=== PATIENT | female | born 1980 | race Caucasian/White ===

== ENCOUNTER 2017-07-24 10:58 | Day surgery (SDC) | payer OTHER ==
[~2017-07-24 10:58] MED LIST: CEFAZOLIN SODIUM 2 GM in DEXTROSE 5%-WATER 100 ML IV PRN
[2017-07-24] MEDS ORDERED: BACITRACIN INJ 50,000 UNIT VIAL ONE (11:21)
[2017-07-24] MEDS ORDERED: BUPIVACAINE HCL 0.5 % INJ/PF 30 ML SDV ONE (11:21)
[2017-07-24 11:36] LABS: HEMATOCRIT 43.7 % (36.0-47.0); HEMOGLOBIN 14.8 g/dL (12.0-15.5); MEAN CORPUSCULAR HEMOGLOBIN 30.2 pg (27.0-33.4); MEAN CORPUSCULAR HGB CONC 33.9 g/dL (32.0-36.0); MEAN CORPUSCULAR VOLUME 89 fl (80-97); PLATELET COUNT 178 10^3/uL (150-450); WHITE BLOOD COUNT 5.8 10^3/uL (4.0-10.5)
[2017-07-24] MEDS ORDERED: RINGERS SOLUTION,LACTATED 1,000 ML IV PRN ×2 (11:39→17:45)
[2017-07-24 11:41] LABS: APPEARANCE,URINE CLEAR; BILIRUBIN,URINE NEGATIVE (NEGATIVE); COLOR,URINE YELLOW; GLUCOSE, URINE NEGATIVE (NEGATIVE); KETONES,URINE NEGATIVE (NEGATIVE); LEUKOCYTE ESTERASE,URINE NEGATIVE (NEGATIVE); NITRITE,URINE NEGATIVE (NEGATIVE); PROTEIN,URINE NEGATIVE (NEGATIVE); URINE SPECIFIC GRAVITY 1.016; UROBILINOGEN,URINE NEGATIVE mg/dL (<2.0)
[2017-07-24 12:00] LABS: ANION GAP 13 (5-19); BLOOD UREA NITROGEN 12 mg/dL (7-20); CALCIUM 9.5 mg/dL (8.4-10.2); CARBON DIOXIDE 25 mmol/L (22-30); CHLORIDE 107 mmol/L (98-107); GLUCOSE 83 mg/dL (75-110); POTASSIUM 4.9 mmol/L (3.6-5.0)
[2017-07-24] MEDS ORDERED: FAMOTIDINE INJ/PF 20 MG/2 ML SDV IV ONE (12:30)
[2017-07-24] MEDS ORDERED: SCOPOLAMINE HYDROBROMIDE 1.5 MG PATCH.TD72 TD ONE (12:30)
[2017-07-24] MEDS ORDERED: RINGERS SOLUTION,LACTATED 1,000 ML IV ONE (12:30)
[2017-07-24] MEDS ORDERED: PROPOFOL INJ 200 MG/20 ML VIAL IV ONE (14:42)
[2017-07-24] MEDS ORDERED: FENTANYL CITRATE INJ/PF 100 MCG/2 ML AMPUL ONE (14:42)
[2017-07-24] MEDS ORDERED: ONDANSETRON HCL INJ/PF 4 MG/2 ML SDV ONE (14:42)
[2017-07-24] MEDS ORDERED: MIDAZOLAM 2 MG/2 ML INJ ONE (14:42)
[2017-07-24] MEDS ORDERED: HYDROMORPHONE HCL INJ/PF 2 MG/ML AMPULE ONE (14:43)
[2017-07-24] MEDS ORDERED: DIPHENHYDRAMINE HCL 50 MG/ML VIAL IV PRN (15:22)
[2017-07-24] MEDS ORDERED: FENTANYL CITRATE INJ/PF 100 MCG/2 ML AMPUL IV PRN ×3 (15:22)
[2017-07-24] MEDS ORDERED: PROMETHAZINE HCL INJ 25 MG/1 ML VIAL IV PRN (15:22)
[2017-07-24] MEDS ORDERED: MEPERIDINE HCL/PF INJ 25 MG/1 ML DISP.SYRIN IV PRN (15:22)
[2017-07-24] MEDS ORDERED: ACETAMINOPHEN 100 ML IV ONE (15:32)
--- NOTE | 2017-07-24 17:27 | Operative Report ---
Operative Report DATE OF SURGERY: 07/24/17 PREOPERATIVE DIAGNOSIS: Untable Left Elbow Dislocation POSTOPERATIVE DIAGNOSIS: Same OPERATION: Lateral ulnar collateral ligament repair with placement of internal joint stabilizer Open treatment of unstable elbow dislocation SURGEON: PAN HERNANDEZ 1ST GATE SHEAR OPERATOR: CHETAN BELLA - Required for to retractor placement and joint reduction. COMPLICATIONS: None ESTIMATED BLOOD LOSS: Minimal PROCEDURE: Indication for above procedure: 37-year-old female who sustained a fall resulting in a dislocation of her left elbow. Closed reduction was performed unfortunately patient continued to have residual stability of her elbow at that point patient was referred to me for possible treatment. After discussing patient's injury and options decision was made to proceed with operative intervention. Risks and benefits were explained patient verbalized understanding consented for the procedure. Procedure In Detail: Patient was seen and evaluated in the preoperative holding area. The LEFT upper extremity was initialized and marked. Patient received 2g of Ancef IV for bacterial prophylaxis. Patient was taken back to the operative room where transferred to the operative table and placed under general anesthesia. Once they were adequately anesthetized a nonsterile tourniquet was placed on the upper extremity. A surgical team debriefing was performed ensuring all instrumentation was available, the surgical procedure was discussed with possible concerns reviewed. The upper extremity was prepped with ChloraPrep and draped in a sterile fashion. A timeout was done identifying correct patient, procedure and extremity everyone in attendance agree with this and verbalized no concerns. The extremity was exsanguinated the tourniquet was inflated to 250 mmHg. Examination under anesthesia demonstrated significant instability globally throughout the ulnohumeral joint. Thus decision was made to proceed with open treatment. Skin incision was made at the midpoint between the olecranon and lateral epicondyle. Blunt dissection was performed to the soft tissues. There is significant disruption of the extensor origin and the radial head was exposed with complete disruption of the lateral ulnar collateral ligament. Inspection of the joint demonstrated chondral fragments within the radiocapitellar and ulnohumeral joint with a small chip fracture of the coronoid. The joint was copiously irrigated with normal saline and any free loose bodies were removed. There is also complete disruption of the anterior capsule. I then proceeded with placement of my guidepin within the isometric point. I measured a medium sized capitellum and with the guide placed a pin through the lateral epicondyle at the origin of the isometric point. C-arm fluoroscopy was obtained confirming appropriate placement of the guide pin. Cannulated drill was then utilized and the guidepin measured to be approximately 40 mm. The locking peg was then placed into position. And I proceeded with lateral ulnar collateral ligament repair. With a #2 FiberWire a Krakw stitch was placed within the lateral ulnar collateral ligament. Drill holes were placed around the locking peg one anterior and one posterior. While reducing the elbow with flexion and pronation this was secured. There is still residual instability and thus decision to proceed with [employer] IJS internal fixator. The posterior lateral corner of the proximal ulna was exposed. Once adequate exposure was confirmed the baseplate was placed first drilling into the dynamic hole aiming towards the coronoid. C-arm fluoroscopy was obtained confirming appropriate placement of the baseplate. I then completed fixation proximal and distal to this one screw within the olecranon tip and the other one obtaining fixation into the ulnar shaft. Once adequate fixation was confirmed I then proceeded with closure of the fascia. The extensor mechanism was reapproximated proximally at its origin with #2 FiberWire. The distal fascial split was closed with interrupted 0 Vicryl suture. I then connected the baseplate and the locking peg and reduce the ulnohumeral and radiocapitellar joint. This was then tightened securely. The elbow was ranged from full extension to full flexion there was no evidence of instability with range of motion. Furthermore there is no evidence of crepitation or resistance to range of motion throughout elbow flexion extension and pronation and supination. Finally the connecting guide was cut to avoid postoperative irritation. Subcutaneous tissues were then closed with interrupted 3-0 Vicryl suture. Skin was closed with a running subcuticular 4-0 Monocryl reinforced with Dermabond and Steri-Strips. 20 cc of 0.5% Marcaine without epinephrine was injected for postoperative pain control. Tourniquet was deflated. Patient had good peripheral perfusion. Patient placed in a well-padded posterior elbow splint at 60 of flexion. Sponge counts, instrument counts, needle counts counts were correct. Patient was then awoken from anesthesia. Transferred from the operating room table to the operating room stretcher. There was no intraoperative complications patient tolerated procedure well stable to PACU. Postoperative plan: Patient will follow-up the office in 2 weeks at which point we will obtain radiographs. Depending on findings radiographically she will begin elbow range of motion without limitations. Anticipate hardware removal 8-10 weeks postoperatively.
[2017-07-24] MEDS ORDERED: MORPHINE SULFATE 10 MG/ML INJ IV PRN (17:45)
[2017-07-24] MEDS ORDERED: KETOROLAC TROMETHAMINE 60 MG/2 ML SDV IM PRN (17:45)
[2017-07-24] MEDS ORDERED: HYDROCODONE/ACETAMINOPHEN 10-325 MG TABLET PO PRN (17:45)
[2017-07-24] MEDS ORDERED: ONDANSETRON HCL INJ/PF 4 MG/2 ML SDV IV PRN (17:45)
--- NOTE | 2017-07-24 17:45 | Discharge Summary ---
Discharge Summary (SDC) - Discharge Final Diagnosis: subluxation of left elbow Date of Surgery: 07/24/17 Discharge Date: 07/24/17 Condition: Good Treatment or Instructions: Schedule Follow Up w/ Dr. Kuldip Casiano @ [facility] for Surgery to be seen in 10-14 days or as scheduled [place]: [place]: [place]: Ice and elevate Keep splint clean/dry/intact. If your fingers become numb please unwrap the K[place] wrap but leave the splint in place, if the sensation does not return within 30 minutes please return to the emergency department. May begin finger range of motion attempting to make full fist. Please use ibuprofen (Motrin or Advil) 600-800 mg every 8 hours as needed for pain or fever DO NOT TAKE w/ TORADOL may use once TORADOL complete. You may also use acetaminophen (Tylenol) 1000 mg every 4-6 hours as needed for pain or fever. Please be aware that many medications contain acetaminophen, do not exceed a total of 1000 mg of acetaminophen every 6 hours. If ibuprofen and acetaminophen are not sufficient for your pain you may take the Percocet/[place]. Please be aware that the Percocet/[place] does contain Tylenol. Stool softener of choice when on pain medication. Prescriptions: Hydrocodone/Acetaminophen [Hydrocodon-Acetaminophen 5-325] 1 each PO Q6 #30 tablet Ketorolac Tromethamine [Toradol 10 mg Tablet] 10 mg PO Q6 #10 tablet Referrals: CHRIS CASTANO PA [Primary Care Provider] - Discharge Diet: As Tolerated, Regular Respiratory Treatments at Home: Deep Breathing/Coughing Discharge Activity: No Lifting Over 10 Pounds, No Lifting/Push/Pulling, No tub bath Report the Following to Your Physician Immediately: Shortness of Breath, Yellow Skin, Fever over 101 Degrees, Swelling, Warmth, Increased Soreness, Drainage- Yellow
[2017-07-24] MEDS ORDERED: KETOROLAC TROMETHAMINE INJ/PF 30 MG/1 ML SDV ONE (17:48)
[2017-07-24] MEDS: HYDROMORPHONE HCL INJ/PF 2 MG/ML AMPULE ONE ×2 (17:49→17:59)
--- NOTE | 2017-07-24 17:59 | RADIOLOGY REPORT (SQ) ---
EXAM DESCRIPTION: NO CHG FLUORO; ELBOW LEFT AP/LATERAL COMPLETED DATE/TIME: 07/24/2017 5:50 pm REASON FOR STUDY: LT ELBOW REPAIR, LAT. FIXATOR PLACEMENT COMPARISON: None. FLUOROSCOPY TIME: 1 minute 5 Images saved to PACS LIMITATIONS: None. PROCEDURE: ORIF left elbow FINDINGS: Images obtained with fluoro document the open reduction internal fixation of what appears to be a fracture of the proximal ulna. IMPRESSION: ORIF left elbow. COMMENT: PQRS 6045F: Fluoroscopy time of the procedure is documented in the report. TECHNICAL DOCUMENTATION: JOB ID: [id number] [employer]- All Rights Reserved Reading location - IP/workstation name: [email or web address]
--- NOTE | 2017-07-24 17:59 | RADIOLOGY REPORT (SQ) ---
EXAM DESCRIPTION: NO CHG FLUORO; ELBOW LEFT AP/LATERAL COMPLETED DATE/TIME: 07/24/2017 5:50 pm REASON FOR STUDY: LT ELBOW REPAIR, LAT. FIXATOR PLACEMENT COMPARISON: None. FLUOROSCOPY TIME: 1 minute 5 Images saved to PACS LIMITATIONS: None. PROCEDURE: ORIF left elbow FINDINGS: Images obtained with fluoro document the open reduction internal fixation of what appears to be a fracture of the proximal ulna. IMPRESSION: ORIF left elbow. COMMENT: PQRS 6045F: Fluoroscopy time of the procedure is documented in the report. TECHNICAL DOCUMENTATION: JOB ID: [id number] [employer]- All Rights Reserved Reading location - IP/workstation name: [email or web address]
[2017-07-24 20:08] VITALS: BP 156/108
[2017-07-25] MEDS ORDERED: (PENDING PHARMACY ID) (Bupropion Hcl [Wellbutrin Sr 150 Mg Tablet] 1 TAB) PO SCH (10:00)
[2017-07-25] MEDS ORDERED: BUPROPION HCL 75 MG TABLET PO SCH (10:00)
[2017-07-25] MEDS ORDERED: CETIRIZINE 10 MG TABLET PO SCH (10:00)
== END 2017-07-24 20:05 | disposition home or self-care (01) ==
LOC: OROUT 10:58
PROVIDERS: ATTEND Orthopaedic Surgery
DX: S53.422A Ulnohumeral (joint) sprain of left elbow, initial encounter (principal); W19.XXXA Unspecified fall, initial encounter; Y93.51 Activity, roller skating (inline) and skateboarding; M19.90 Unspecified osteoarthritis, unspecified site; F32.9 Major depressive disorder, single episode, unspecified; F41.9 Anxiety disorder, unspecified; Z79.899 Other long term (current) drug therapy
CPT/HCPCS: 36415; 85027; 81025; 80048; 81001; 73070; 24343; J2250; J3490; J0690; J1885; J1170; J2405; J2704; S0028; J0131; 01740; J3010

== ENCOUNTER 2017-10-09 08:49 | Day surgery (SDC) | payer OTHER ==
--- NOTE | 2017-10-02 11:33 | RADIOLOGY REPORT (SQ) ---
EXAM DESCRIPTION: CHEST PA/LATERAL COMPLETED DATE/TIME: 10/02/2017 11:04 am REASON FOR STUDY: PRE-OP COMPARISON: None. EXAM PARAMETERS: NUMBER OF VIEWS: two views TECHNIQUE: Digital Frontal and Lateral radiographic views of the chest acquired. RADIATION DOSE: NA LIMITATIONS: none FINDINGS: LUNGS AND PLEURA: No opacities, masses or pneumothorax. No pleural effusion. MEDIASTINUM AND HILAR STRUCTURES: No masses or contour abnormalities. HEART AND VASCULAR STRUCTURES: Heart normal size. No evidence for failure. BONES: No acute findings. HARDWARE: None in the chest. OTHER: No other significant finding. IMPRESSION: NO SIGNIFICANT RADIOGRAPHIC FINDING IN THE CHEST. TECHNICAL DOCUMENTATION: JOB ID: [id number] [employer]- All Rights Reserved Reading location - IP/workstation name: [email or web address]
[2017-10-02 11:34] LABS: HEMATOCRIT 43.1 % (36.0-47.0); HEMOGLOBIN 14.9 g/dL (12.0-15.5); MEAN CORPUSCULAR HEMOGLOBIN 30.5 pg (27.0-33.4); MEAN CORPUSCULAR HGB CONC 34.6 g/dL (32.0-36.0); MEAN CORPUSCULAR VOLUME 88 fl (80-97); PLATELET COUNT 181 10^3/uL (150-450); RED BLOOD COUNT 4.89 10^6/uL (3.72-5.28); RED CELL DISTRIBUTION WIDTH 14.4 % (11.5-14.0); WHITE BLOOD COUNT 5.3 10^3/uL (4.0-10.5)
[2017-10-02 11:35] LABS: APPEARANCE,URINE SLIGHTLY-CLOUDY; BILIRUBIN,URINE NEGATIVE (NEGATIVE); COLOR,URINE YELLOW; GLUCOSE, URINE NEGATIVE (NEGATIVE); KETONES,URINE NEGATIVE (NEGATIVE); LEUKOCYTE ESTERASE,URINE NEGATIVE (NEGATIVE); NITRITE,URINE NEGATIVE (NEGATIVE); PROTEIN,URINE NEGATIVE (NEGATIVE); URINE SPECIFIC GRAVITY 1.006; UROBILINOGEN,URINE NEGATIVE mg/dL (<2.0)
[2017-10-02 11:55] LABS: ANION GAP 12 (5-19); BLOOD UREA NITROGEN 17 mg/dL (7-20); CALCIUM 9.7 mg/dL (8.4-10.2); CARBON DIOXIDE 28 mmol/L (22-30); CHLORIDE 102 mmol/L (98-107); GLUCOSE 80 mg/dL (75-110); POTASSIUM 4.7 mmol/L (3.6-5.0); SODIUM 142.1 mmol/L (137-145)
--- NOTE | 2017-10-02 20:43 | EKG REPORT ---
SEVERITY:- NORMAL ECG - SINUS RHYTHM : Confirmed by: Lesa Conklin MD 02-Oct-2017 20:41:51
[~2017-10-09 08:49] MED LIST changes: +BUPIVACAINE HCL 0.5 % INJ/PF 30 ML SDV ONE; +CEFAZOLIN 2 GM/D5W RTU 2 GM/50 ML RTUPB IV PRN; -CEFAZOLIN SODIUM 2 GM in DEXTROSE 5%-WATER 100 ML IV PRN; +LACTATED RINGERS 1000 ML IV PRN; +LIDOCAINE 0.5% INJ-PF (5 MG/ML) 50 ML SDV SUBCUT PRN; +LIDOCAINE 1% INJ-PF (10 MG/ML) 30 ML SDV ONE
[2017-10-09] MEDS ORDERED: LIDOCAINE 2% INJ-PF (20 MG/ML) 10 ML AMPUL ONE (10:16)
[2017-10-09] MEDS ORDERED: FENTANYL CITRATE INJ/PF 250 MCG/5 ML AMPULE ONE (10:16)
[2017-10-09] MEDS ORDERED: MIDAZOLAM 2 MG/2 ML INJ ONE (10:17)
[2017-10-09] MEDS ORDERED: ACETAMINOPHEN 1,000 MG/100 ML RTUPB IV ONE (10:17)
[2017-10-09] MEDS ORDERED: PROPOFOL INJ 200 MG/20 ML VIAL IV ONE (10:17)
[2017-10-09] MEDS ORDERED: DEXAMETHASONE SOD PHOSPHATE INJ 4 MG/1 ML VIAL ONE (10:17)
[2017-10-09] MEDS ORDERED: ONDANSETRON HCL INJ/PF 4 MG/2 ML SDV ONE (10:17)
[2017-10-09] MEDS ORDERED: DIPHENHYDRAMINE HCL 50 MG/ML VIAL IV PRN (12:38)
[2017-10-09] MEDS ORDERED: OXYCODONE-ACETAMINOPHEN 5-325 MG TABLET PO PRN ×2 (12:38)
[2017-10-09] MEDS ORDERED: ONDANSETRON HCL INJ/PF 4 MG/2 ML SDV IV PRN (12:38)
[2017-10-09] MEDS ORDERED: PROMETHAZINE HCL INJ 25 MG/1 ML VIAL IV PRN ×2 (12:38)
[2017-10-09] MEDS ORDERED: MEPERIDINE HCL/PF INJ 25 MG/1 ML DISP.SYRIN IV PRN (12:38)
[2017-10-09] MEDS ORDERED: MORPHINE SULFATE 10 MG/ML INJ IV PRN ×2 (12:38→13:32)
[2017-10-09] MEDS ORDERED: FENTANYL CITRATE INJ/PF 100 MCG/2 ML AMPUL IV PRN ×3 (12:38)
--- NOTE | 2017-10-09 13:27 | Discharge Summary ---
Discharge Summary (SDC) - Discharge Final Diagnosis: Status post open reduction internal fixation left elbow dislocation Date of Surgery: 10/09/17 Discharge Date: 10/09/17 Condition: Good Forms: ASU Anesthesia D/C Instruction, Discharge POC-Surgical Service Treatment or Instructions: Schedule Follow Up w/ Dr. Kuldip Hernandez @ [facility] for Surgery to be seen in 10-14 days or as scheduled [place]: [place]: [place]: May remove dressing on postop day #3, keep incision covered and dry. Ice and elevate May begin immediate elbow range of motion and Occupational Therapy within 72 hours Stool softener of choice when on pain medication. Prescriptions: Hydrocodone/Acetaminophen [[place] 5-325 mg Tablet] 1 tab PO Q6 PRN #30 tablet PRN Reason: Referrals: KULDIP HERNANDEZ DO [ACTIVE STAFF] - Respiratory Treatments at Home: Deep Breathing/Coughing Discharge Activity: No Lifting Over 10 Pounds, No Lifting/Push/Pulling Report the Following to Your Physician Immediately: Fever over 101 Degrees, Unusual Bleeding, Redness, Swelling, Warmth, Increased Soreness
[2017-10-09] MEDS ORDERED: HYDROCODONE/ACETAMINOPHEN 5-325 MG TABLET PO PRN (13:32)
--- NOTE | 2017-10-09 13:32 | Operative Report ---
Operative Report DATE OF SURGERY: 10/09/17 PREOPERATIVE DIAGNOSIS: Retained painful hardware left elbow status post elbow dislocation with internal fixation POSTOPERATIVE DIAGNOSIS: Same OPERATION: Removal of hardware left elbow with contracture release SURGEON: PAN HERNANDEZ ANESTHESIA: GA COMPLICATIONS: None ESTIMATED BLOOD LOSS: Minimal PROCEDURE: Indication for above procedure: 37-year-old female who sustained a elbow dislocation with residual instability despite attempted closed reduction. Patient [place] further evaluation and treatment and ultimately underwent open reduction internal fixation with placement of internal fixator of the left elbow. Patient did well postoperatively and achieved good range of motion but continued to have persistent discomfort at the hardware site along with residual flexion contracture. We discussed treatment options and thus decision was made to proceed with operative intervention. Procedure In Detail: Patient was seen and evaluated in the preoperative holding area. The LEFT upper extremity was initialized and marked. Patient received 2g of Ancef IV for bacterial prophylaxis. Patient was taken back to the operative room where transferred to the operative table and placed under general anesthesia. Once they were adequately anesthetized a nonsterile tourniquet was placed on the upper extremity. A surgical team debriefing was performed ensuring all instrumentation was available, the surgical procedure was discussed with possible concerns reviewed. The upper extremity was prepped with ChloraPrep and alcohol and draped in a sterile fashion. A timeout was done identifying correct patient, procedure and extremity everyone in attendance agree with this and verbalized no concerns. The extremity was exsanguinated the tourniquet was inflated to 250 mmHg. Previous skin incision was utilized. Blunt dissection performed and the IJS center of rotation pin was identified and removed. Prior to removing the proximal ulnar plate examination under anesthesia was performed. There was no evidence of residual instability patient demonstrated full flexion still lacking 30 of extension. The connection arm into the capitellum was identified and adequately removed. Scar tissue was freed up overlying the remaining hardware along the proximal ulna fixation device removed. The screw holes were curetted and irrigated with saline. I then developed a plane anteriorly avoiding dissection along the previous lateral ulnar collateral ligament reconstruction. Via this anterior plane capsule was freed up along the anterior aspect of the humerus special attention avoiding dissection anteriorly and staying on bone. Once the capsule was released I was able to passively extend to 0 with full elbow flexion greater than 150. With the use of C-arm fluoroscopy I confirmed reduction of the ulnohumeral and radiocapitellar joints. There is no evidence of instability with varus or valgus stress. The wound was copiously irrigated with normal saline. Previous scar from the skin incision was excised. Deep soft tissues were closed with 2-0 Vicryl. Subcutaneous tissues were closed with interrupted 3-0 Monocryl suture. Skin was closed with a running subcuticular 4-0 Monocryl reinforced with Dermabond and Steri-Strips. Patient was placed in a soft dressing. Sponge counts, instrument counts, needle counts counts were correct. Patient was then awoken from anesthesia. Transferred from the operating room table to the operating room stretcher. There was no intraoperative complications patient tolerated procedure well stable to PACU. Postoperative plan: Patient will follow-up the office in 2 weeks for wound check will obtain radiographs. Patient will begin occupational therapy in 72 hours to begin range of motion exercises.
--- NOTE | 2017-10-09 14:59 | RADIOLOGY REPORT (SQ) ---
EXAM DESCRIPTION: ELBOW LEFT AP/LATERAL; NO CHG FLUORO COMPLETED DATE/TIME: 10/09/2017 2:38 pm; 10/09/2017 2:37 pm REASON FOR STUDY: HARDWARE REMOVAL LEFT ELBOW M25.522 PAIN IN LEFT ELBOW COMPARISON: 07/24/2017 FLUOROSCOPY TIME: 52 seconds 7 series of digital images saved to PACS. TECHNIQUE: Intra-operative images acquired during surgical procedure to evaluate progress. NUMBER OF IMAGES: 7 digital images LIMITATIONS: None. FINDINGS: Multiple images are submitted during hardware removal from the left ulna at the elbow. Pl ease see the operative report for further details. IMPRESSION: Intra procedural imaging and fluoro COMMENT: Quality ID 145: Final reports for procedures using fluoroscopy that document radiation exp osure indices, or exposure time and number of fluorographic images (if radiation exposure indices are not available) Please consult full operative report of the attending physician for description of the procedure. TECHNICAL DOCUMENTATION: JOB ID: [id number] [employer]- All Rights Reserved Reading location - IP/workstation name: [email or web address]
--- NOTE | 2017-10-09 14:59 | RADIOLOGY REPORT (SQ) ---
EXAM DESCRIPTION: ELBOW LEFT AP/LATERAL; NO CHG FLUORO COMPLETED DATE/TIME: 10/09/2017 2:38 pm; 10/09/2017 2:37 pm REASON FOR STUDY: HARDWARE REMOVAL LEFT ELBOW M25.522 PAIN IN LEFT ELBOW COMPARISON: 07/24/2017 FLUOROSCOPY TIME: 52 seconds 7 series of digital images saved to PACS. TECHNIQUE: Intra-operative images acquired during surgical procedure to evaluate progress. NUMBER OF IMAGES: 7 digital images LIMITATIONS: None. FINDINGS: Multiple images are submitted during hardware removal from the left ulna at the elbow. Pl ease see the operative report for further details. IMPRESSION: Intra procedural imaging and fluoro COMMENT: Quality ID [id number]: Final reports for procedures using fluoroscopy that document radiation exp osure indices, or exposure time and number of fluorographic images (if radiation exposure indices are not available) Please consult full operative report of the attending physician for description of the procedure. TECHNICAL DOCUMENTATION: JOB ID: [id number] [employer]- All Rights Reserved Reading location - IP/workstation name: [email or web address]
[2017-10-09 15:22] VITALS: BP 135/85
== END 2017-10-09 15:10 | disposition home or self-care (01) ==
LOC: OROUT 08:49
PROVIDERS: ATTEND Orthopaedic Surgery
DX: S53.13 Medial subluxation and dislocation of ulnohumeral joint (principal); X58.XXXA Exposure to other specified factors, initial encounter; M24.521 Contracture, right elbow; M25.522 Pain in left elbow; M19.90 Unspecified osteoarthritis, unspecified site; Z79.1 Long term (current) use of non-steroidal anti-inflammatories (NSAID); Z79.899 Other long term (current) drug therapy
CPT/HCPCS: 93005; 36415; 85027; 81025; 80048; 81001; 71046; 73070; 93010; 20680; J2250; J3490 ×2; J1100; J3010; J2405; J2704; J0690; J0131; 01740